=== PATIENT | female | born 1965 | race Caucasian/White ===

== ENCOUNTER → 2020-01-21 | Outpatient (CLI) | payer OTHER | LOC: HYPER 08:31 | DX: T81.41XA Infection following a procedure, superficial incisional surgical site, initial encounter (principal); I70.25 Atherosclerosis of native arteries of other extremities with ulceration; L98.492 Non-pressure chronic ulcer of skin of other sites with fat layer exposed; I70.232 Atherosclerosis of native arteries of right leg with ulceration of calf; L97.212 Non-pressure chronic ulcer of right calf with fat layer exposed; I70.248 Atherosclerosis of native arteries of left leg with ulceration of other part of lower leg; L97.822 Non-pressure chronic ulcer of other part of left lower leg with fat layer exposed; I70.242 Atherosclerosis of native arteries of left leg with ulceration of calf; L97.222 Non-pressure chronic ulcer of left calf with fat layer exposed; I70.238 Atherosclerosis of native arteries of right leg with ulceration of other part of lower leg; L97.812 Non-pressure chronic ulcer of other part of right lower leg with fat layer exposed; L89.323 Pressure ulcer of left buttock, stage 3; L89.313 Pressure ulcer of right buttock, stage 3; L03.113 Cellulitis of right upper limb; C44.520 Squamous cell carcinoma of anal skin; C44.622 Squamous cell carcinoma of skin of right upper limb, including shoulder; M89.9 Disorder of bone, unspecified; C79.9 Secondary malignant neoplasm of unspecified site; F41.9 Anxiety disorder, unspecified; F17.200 Nicotine dependence, unspecified, uncomplicated; Z79.82 Long term (current) use of aspirin; Y83.8 Other surgical procedures as the cause of abnormal reaction of the patient, or of later complication, without mention of misadventure at the time of the procedure; Y92.89 Other specified places as the place of occurrence of the external cause ==

== ENCOUNTER → 2020-01-21 | Outpatient (CLI) | payer OTHER | LOC: SJCVCIMAG 09:42 | DX: L97.828 Non-pressure chronic ulcer of other part of left lower leg with other specified severity (principal); L97.818 Non-pressure chronic ulcer of other part of right lower leg with other specified severity ==